=== PATIENT | female | born 1955 | race Caucasian/White ===

== ENCOUNTER 2023-06-06 21:52 | Emergency (ER) | payer OTHER, MEDICAID ==
[~2023-06-06] VITALS: Ht 162.6 cm; Wt 61.2 kg
[2023-06-06] MEDS ORDERED: ROSU5TAB PO (22:57)
[2023-06-06] MEDS ORDERED: ACYC-106 PO (22:57)
[2023-06-06] MEDS ORDERED: LAMO100T17 PO (22:57)
[2023-06-06] MEDS ORDERED: ONDA-104 PO (22:57)
[2023-06-06] MEDS ORDERED: FLUO20CA42 PO (22:57)
[2023-06-06] MEDS ORDERED: LORA0.5T48 PO (22:57)
[2023-06-06] MEDS ORDERED: FAMO-132 PO (22:57)
[2023-06-06] MEDS ORDERED: ALBU6.7H9 IH (22:57)
[2023-06-06] MEDS ORDERED: DABI150C PO (22:57)
[2023-06-07] MEDS ORDERED: IV NORMAL SALINE 1000 ML BAG IV ONE (00:15)
[2023-06-07] MEDS ORDERED: ONDANSETRON 4 MG/2 ML VIAL IV ONE ×2 (00:15→04:30)
[2023-06-07] MEDS ORDERED: MECLIZINE HCL 25 MG TABLET PO ONE (00:15)
[2023-06-07] MEDS ORDERED: ONDANSETRON 4 MG/2 ML VIAL ONE ×2 (00:22→04:33)
[2023-06-07] MEDS ORDERED: MECLIZINE HCL 25 MG TABLET ONE (00:22)
[2023-06-07 00:35] LABS: CALCIUM 9.1 mg/dL (8.5-10.1); CARBON DIOXIDE 26 mmol/L (21-32); CHLORIDE 104 mmol/L (98-107); CREATININE 0.8 mg/dL (0.6-1.3); GLUCOSE 105 mg/dL (74-106); POTASSIUM 3.8 mmol/L (3.5-5.1); SODIUM SERUM 140 mmol/L (136-145); UREA NITROGEN, BLOOD 11 mg/dL (7-18)
[2023-06-07 00:48] LABS: ALBUMIN 3.6 g/dL (3.4-5.0); BILIRUBIN,DIRECT 0.1 mg/dL (0.0-0.2); BILIRUBIN,TOTAL 0.4 mg/dL (0.2-1.0); MAGNESIUM 2.3 mg/dL (1.8-2.4); TOTAL PROTEIN, SERUM 7.1 g/dL (6.4-8.2)
[2023-06-07 00:54] LABS: BASOPHILS # (AUTO) 0.1 K/UL (0.0-0.2); EOSINOPHILS # (AUTO) 0.1 K/uL (0.0-0.7); EOSINOPHILS % (AUTO) 1.4 % (0.0-7.0); HEMATOCRIT 43.7 % (31.2-41.9); LYMPHOCYTES % (AUTO) 25.5 % (20.5-51.5); MEAN CORPUSCULAR HEMOGLOBIN 32.1 uug (24.7-32.8); MEAN CORPUSCULAR HGB CONC 34 g/dL (32.3-35.6); MEAN CORPUSCULAR VOLUME 93.8 fL (75.5-95.3); MONOCYTES # (AUTO) 0.5 K/uL (0.1-1.30); NEUTROPHILS # (AUTO) 5.2 K/uL (1.8-8.9); NEUTROPHILS % (AUTO) 66.1 % (38.5-71.5); PLATELET COUNT (AUTO) 277 K/uL (179-408); RED BLOOD CELL COUNT(AUTO) 4.67 MIL/uL (3.63-4.92); RED CELL DISTRIBUTION WIDTH 13.1 % (12.3-17.7); WHITE BLOOD COUNT (AUTO) 7.8 K/uL (3.8-11.8)
[2023-06-07 04:00] VITALS: O2SAT 95
[2023-06-07] MEDS ORDERED: LORAZEPAM 2 MG/1 ML VIAL IV ONE (04:30)
[2023-06-07] MEDS ORDERED: LORAZEPAM 2 MG/1 ML VIAL ONE (04:34)
== END 2023-06-07 05:00 | disposition short-term general hospital (02) ==
LOC: ER 21:55
DX: R42 Dizziness and giddiness (principal); R11.2 Nausea with vomiting, unspecified; R03.0 Elevated blood-pressure reading, without diagnosis of hypertension; E78.5 Hyperlipidemia, unspecified; Z79.899 Other long term (current) drug therapy; J45.909 Unspecified asthma, uncomplicated; Z88.0 Allergy status to penicillin; Z88.1 Allergy status to other antibiotic agents; Z88.5 Allergy status to narcotic agent
CPT/HCPCS: 99285; 96374; 70450; 71045; 96361; 96375; 80076; 80048; 83880; 83690; 83735; 85025; 85730; 84484; 36415; 93005; 96376; J2060; J2405 ×2; J7040; A4606; A4663; J8597